=== PATIENT | male | born 1960 | race Caucasian/White ===

== ENCOUNTER 2017-11-14 06:45 | Day surgery (SDC) | payer BC, OTHER ==
[~2017-11-14 06:45] MED LIST: Lactated Ringers 1,000 ML IV SCH; Sodium Chloride 0.9% 10 ML Syringe FLUSH PRN
[2017-11-14] MEDS ORDERED: ceFAZolin 1 GM Vial IV ONE (08:00)
[2017-11-14] MEDS ORDERED: Ketorolac 30 MG/ML SDV IVPUSH ONE (08:00)
[2017-11-14] MEDS ORDERED: fentaNYL 100 MCG/2 ML SDV IV ONE (08:00)
[2017-11-14] MEDS ORDERED: Propofol 200 MG/20 ML SDV IV ONE (08:00)
[2017-11-14] MEDS ORDERED: Midazolam 1 MG/ML 2 ML SDV IV ONE (08:00)
[2017-11-14] MEDS ORDERED: ceFAZolin 1 GM in Sodium Chloride 0.9% 50 ML IV ONE (08:00)
[2017-11-14] MEDS ORDERED: diphenhydrAMINE 50 MG/ML SDV IV ONE (08:00)
[2017-11-14] MEDS ORDERED: Dexamethasone 4 MG/ML 5 ML MDV IVPUSH ONE (08:00)
[2017-11-14] MEDS ORDERED: Ondansetron 4 MG/2 ML SDV IVPUSH ONE (08:00)
[2017-11-14] MEDS ORDERED: Lidocaine 1% with EPINEPHrine 1:100,000 20 ML MDV INJECT ONE (08:22)
[2017-11-14] MEDS ORDERED: Bupivacaine 0.5% 30 ML SDV INJECT ONE (08:22)
--- NOTE | 2017-11-14 09:15 | PCM.OPNOTE ---
- General Post-Op/Procedure Note Date of Surgery/Procedure: 11/14/17 Operative Procedure(s): umbilical and lih repair Findings: umbilical hernia pantaloon hernia Pre Op Diagnosis: umbilical and lih Post-Op Diagnosis: umbilical hernia. pantaloon hernia Anesthesia Technique: General LMA, Local (13 ml 1 % lido with epi) Primary Surgeon: Dejan Tse Anesthesia Provider: Jessica Ctotrell Pathology: none Complications: None Condition: Good Free Text/Narrative:: see dictation
[2017-11-14] MEDS ORDERED: Acetaminophen/HYDROcodone 325-5 MG Tab PO ONE (10:06)
--- NOTE | 2017-11-14 12:32 | OR ---
DATE OF OPERATION: 11/14/2017 SURGEON: Dejan Tse MD PROCEDURE PERFORMED: Umbilical hernia and left inguinal hernia repair. PREOPERATIVE DIAGNOSIS: Umbilical hernia and left inguinal hernia. POSTOPERATIVE DIAGNOSIS: Umbilical hernia and left inguinal hernia. INDICATIONS FOR PROCEDURE: This is a 57-year-old white male, who is referred with symptomatic umbilical and inguinal hernia on the left side. He was offered and accepted repair. INTRAOPERATIVE FINDINGS: A 2 cm defect was encountered in the umbilicus. This was repaired with a Ventralex ST hernia patch reference #[id number], expiration date 2019-03-19 with a lot #[id number], and the inguinal hernia was repaired with a preshaped keyhole from [employer], lot #[id number], expiration date 2021-11-19 with a reorder #[id number] and this was a pantaloon hernia, a combination direct and indirect hernia. A total of 13 mL of local anesthetic was used and this was a 1:1 mixture of 1% lidocaine with epinephrine 0.5% bupivacaine. DESCRIPTION OF PROCEDURE: After an excellent LMA anesthetic was administered, the patient was prepped and draped in the usual sterile manner. We began our procedure by infiltrating the area around the umbilicus with our one-to-one local mixture. Curvilinear incision was made at the base of the umbilicus and careful blunt and sharp dissection was carried out. Dissecting the hernia sac from the surrounding tissue, sharp dissection was used to dissect the hernia from the posterior aspect of the umbilicus. The incarcerated fat was then reduced. Hernia sac was excised, passed off the field. It was not sent for specimen. Blunt dissection was carried out dissecting the preperitoneal fat from the anterior abdominal wall. Our mesh was then inserted and after adhering it to the anterior abdominal wall was tacked into position with a running 0 Prolene. The tails were excised as we closed. The umbilicus was then tacked to the anterior abdominal wall using an 0 Vicryl. Estiven were used to close the skin after irrigating the wound. Our attention was then turned to the left inguinal area. Our planned area of the incision was infiltrated with more local, and an injection to the genitofemoral and ilioinguinal nerves were performed by raising a skin wheal approximately 1 fingerbreadth medial to the anterior superior iliac spine and doing a deep muscular injection of 2 mL of our local mixture. We performed our incision. The subcu fat was divided using electrocautery. The aponeurosis of the external oblique was exposed, more local was injected underneath that, and then incision was made through the aponeurosis out through the external ring. The ilioinguinal nerve was identified and dissected off the cord and retracted off the operative field. A retractor was placed and after mobilizing the cord and controlling it with 1 inch Maggie drain this cord was then skeletonized and a preperitoneal fat and an indirect hernia were reduced. The patient also had a fairly marked paucity of the floor of the inguinal canal very suggestive of a combined direct indirect hernia also known as a pantaloon hernia. This was repaired by imbricating the transversalis fascia down to the inguinal ligament and tacking it into position with interrupted 0 Ethibond. Our keyhole mesh was then placed on the floor of the inguinal canal and starting at the symphysis pubis was tacked into position with a running 2-0 Prolene along the inguinal ligament carrying it out lateral beyond the internal ring. The keyhole was then closed with a running 2-0 Prolene as well. Opti-Fix was used to tack the mesh to the floor of the inguinal canal to ensure good adhesion. Returning the ilioinguinal nerve into its normal anatomic position, it became evident that this would be irritated by the mesh itself; therefore, it was clamped, divided, and tied with 2-0 Vicryl ties to prevent neuroma formation or postoperative pain. After irrigating the floor of the canal, the aponeurosis was reapproximated with a running 3-0 Vicryl and 3-0 Vicryl was used to approximate the subcu fat and the skin was closed with estiven. Needle, sponge, and instrument counts were reported as correct. The patient was taken to recovery in good condition. /[id number] /[facility]
== END 2017-11-14 12:15 | disposition home or self-care (01) ==
LOC: FB.SDS 06:45
PROVIDERS: ATTEND Surgery
DX: K40.90 Unilateral inguinal hernia, without obstruction or gangrene, not specified as recurrent (principal); K42.0 Umbilical hernia with obstruction, without gangrene; E78.4 Other hyperlipidemia; K21.9 Gastro-esophageal reflux disease without esophagitis; N40.1 Benign prostatic hyperplasia with lower urinary tract symptoms; N13.8 Other obstructive and reflux uropathy; N52.9 Male erectile dysfunction, unspecified; N48.6 Induration penis plastica; F41.9 Anxiety disorder, unspecified; J44.9 Chronic obstructive pulmonary disease, unspecified; F32.9 Major depressive disorder, single episode, unspecified; Z90.89 Acquired absence of other organs; Z79.899 Other long term (current) drug therapy; Z79.51 Long term (current) use of inhaled steroids; Z79.82 Long term (current) use of aspirin; Z88.2 Allergy status to sulfonamides; Z98.890 Other specified postprocedural states
CPT/HCPCS: 49505; 49587; A9270; C1781; J0690; J1100; J1200; J1885; J2250; J2405; J2704; J3010; J7120

== ENCOUNTER 2023-08-07 06:43 | Day surgery (SDC) | payer OTHER ==
[2023-08-07] MEDS ORDERED: Propofol 200 MG/20 ML SDV IV ONE (06:44)
[2023-08-07] MEDS ORDERED: Midazolam 1 MG/ML 2 ML SDV IV ONE (06:44)
[2023-08-07] MEDS ORDERED: Lactated Ringers 1,000 ML IV SCH (06:45)
[2023-08-07] MEDS ORDERED: Sodium Chloride 0.9% 10 ML Syringe FLUSH PRN (06:45)
== END 2023-08-07 09:35 | disposition home or self-care (01) ==
LOC: FB.SDS 06:43
PROVIDERS: ATTEND Surgery
DX: D12.5 Benign neoplasm of sigmoid colon (principal); D12.3 Benign neoplasm of transverse colon; K57.30 Diverticulosis of large intestine without perforation or abscess without bleeding; E78.5 Hyperlipidemia, unspecified; K21.9 Gastro-esophageal reflux disease without esophagitis; R35.1 Nocturia; G47.10 Hypersomnia, unspecified; L98.9 Disorder of the skin and subcutaneous tissue, unspecified; H91.93 Unspecified hearing loss, bilateral; Z88.2 Allergy status to sulfonamides; J44.9 Chronic obstructive pulmonary disease, unspecified; N40.1 Benign prostatic hyperplasia with lower urinary tract symptoms; N13.9 Obstructive and reflux uropathy, unspecified; Z79.899 Other long term (current) drug therapy
CPT/HCPCS: 00811; 45385; 88305; J2250; J2704; J7120